=== PATIENT | male | born 1980 | race Caucasian/White ===

== ENCOUNTER 2018-04-07 | Emergency (ER) | payer BC ==
[~2018-04-07] VITALS: Ht 185.4 cm; Wt 77.1 kg
[~2018-04-07] MED LIST: CHLO25CA22 PO; ONDA4TAB8 PO
--- NOTE | 2018-04-07 00:35 | NUR ---
To room 1A. seen and evaluated by Dr. Villanueva.
[2018-04-07] MEDS: LIDOCAINE VISCUS 2% 15 ML UDC MM ONE (01:06)
[2018-04-07] MEDS: PANTOPRAZOLE SODIUM 40 MG TABLET.DR PO ONE (01:06)
[2018-04-07] MEDS ORDERED: MAG HYDROX/AL HYDROX/SIMETH 30 ML LIQUID UDC ONE (01:06)
[2018-04-07] MEDS ORDERED: LIDOCAINE VISCUS 2% 15 ML UDC ONE (01:06)
[2018-04-07] MEDS ORDERED: ONDANSETRON ODT 4 MG TAB.RAPDIS ONE (01:06)
[2018-04-07] MEDS: ONDANSETRON ODT 4 MG TAB.RAPDIS SL ONE (01:06)
[2018-04-07] MEDS: MAG HYDROX/AL HYDROX/SIMETH 30 ML LIQUID UDC PO ONE (01:06)
--- NOTE | 2018-04-07 01:06 | NUR ---
PO meds given.
[2018-04-07] MEDS ORDERED: PANTOPRAZOLE SODIUM 40 MG TABLET.DR PO ONE (01:07)
--- NOTE | 2018-04-07 01:30 | NUR ---
Still with c/o cramping abdominal pains. Dr. Villanueva aware.
[2018-04-07] MEDS: IV NORMAL SALINE 1000 ML BAG IV ONE ×2 (02:15→02:26)
--- NOTE | 2018-04-07 02:20 | NUR ---
Labs drawn and IV NS started to RFA IV site. Medicated with Morphine IV.
[2018-04-07 02:23] LABS: BASOPHILS # (AUTO) 0.1 K/uL (0.0-8.0); BASOPHILS % (AUTO) 0.9 % (0.0-2.0); EOSINOPHILS # (AUTO) 0.1 K/uL (0.0-0.7); EOSINOPHILS % (AUTO) 1.5 % (0.0-7.0); HEMATOCRIT 43.1 % (36.7-47.1); HEMOGLOBIN 15.3 g/dL (12.5-16.3); LYMPHOCYTES % (AUTO) 32.5 % (20.5-51.5); MEAN CORPUSCULAR HEMOGLOBIN 31.4 uug (23.8-33.4); MEAN CORPUSCULAR HGB CONC 36 g/dL (32.5-36.3); MEAN CORPUSCULAR VOLUME 88.2 fL (73.0-96.2); MONOCYTES # (AUTO) 0.5 K/uL (2.0-10.0); MONOCYTES % (AUTO) 8.9 % (0.0-11.0); NEUTROPHILS # (AUTO) 3.4 K/uL (1.8-8.9); NEUTROPHILS % (AUTO) 56.2 % (38.5-71.5); PLATELET COUNT (AUTO) 186 K/uL (152-348); RED BLOOD CELL COUNT(AUTO) 4.89 MIL/uL (4.06-5.63); WHITE BLOOD COUNT (AUTO) 6.1 K/uL (3.6-10.2)
[2018-04-07] MEDS ORDERED: MORPHINE SULFATE 4 MG/1 ML DISP.SYRIN ONE ×2 (02:26→03:50)
[2018-04-07] MEDS: MORPHINE SULFATE 4 MG/1 ML DISP.SYRIN IV ONE ×2 (02:27→03:56)
[2018-04-07 02:30] LABS: CREATININE 0.9 mg/dL (0.6-1.3)
[2018-04-07 02:38] LABS: BILIRUBIN,DIRECT 0.2 mg/dL (0.0-0.2); BILIRUBIN,TOTAL 2.1 mg/dL (0.2-1.0); TOTAL PROTEIN, SERUM 6.5 g/dL (6.4-8.2)
--- NOTE | 2018-04-07 02:45 | NUR ---
Up to the BR; gait steady. Urine specimen sent to lab.
[2018-04-07 03:08] LABS: *BILIRUBIN,URIN NEGATIVE (NEGATIVE); *BLOOD, URINE NEGATIVE (NEGATIVE); *CLARITY,URINE CLEAR (CLEAR); *COLOR,URINE YELLOW (YELLOW); *KETONES,URINE NEGATIVE (NEGATIVE); *PROTEIN,URINE NEGATIVE (NEGATIVE); *UROBILINOGEN,URINE 0.2 E.U./dl (NORMAL); LEUKOCYTE ESTERASE ,URINE NEGATIVE (NEGATIVE); NITRITE, URINE NEGATIVE (NEGATIVE); UGLUCOSE NEGATIVE (NEGATIVE)
[2018-04-07 03:27] LABS: BACTERIA,URINE NONE SEEN /HPF (NONE SEEN); RBC,URINE NONE SEEN /HPF (0-3); SQUAMOUS EPITHELIAL CELL,UR FEW /HPF (NONE SEEN); WBC,URINE 0-3 /HPF (0-3)
[2018-04-07] MEDS: ONDANSETRON 4 MG/2 ML VIAL IV ONE (03:56)
--- NOTE | 2018-04-07 04:00 | NUR ---
Dr. Villanueva discussed results of labs with patient.
--- NOTE | 2018-04-07 04:20 | NUR ---
Patient discharged to home in stable conditon. Written and verbal after care instructions given. Patient verbalizes understanding of instructions.
[2018-04-07 04:25] VITALS: BP 110/65
== END 2018-04-07 04:20 | disposition home or self-care (01) ==
LOC: ER 00:04
DX: K29.70 Gastritis, unspecified, without bleeding (principal); Z90.49 Acquired absence of other specified parts of digestive tract; Z88.2 Allergy status to sulfonamides
CPT/HCPCS: 36415; 71045; 83690; 85025; A4663; J2270; J7030; Q0162